=== PATIENT | female | born 1940 | race Caucasian/White ===

== ENCOUNTER 2018-07-20 13:07 | Observation (INO) | payer MEDICARE ==
[~2018-07-20] VITALS: Ht 154.9 cm; Wt 66.9 kg
--- NOTE | 2018-07-20 13:17 | NUR ---
PT TO ROOM VIA EMS
--- NOTE | 2018-07-20 13:37 | NUR ---
PT RESTING ON STRETCHER. VSS. ADVISED OF WAIT TIME FOR TEST RESULTS. SKIN WARM AND DRY.
[2018-07-20 13:51] LABS: HEMATOCRIT 39.7 % (37.0-47.0); HEMOGLOBIN 12.7 g/dl (12.0-16.0); IMMATURE GRANULOCYTES 0.5 % (0.0-5.0); MEAN CELL VOLUME 88.4 fL CALC (80.0-100.0); MEAN CORPUSCULAR HGB 28.3 pG CALC (26.0-32.0); NEUT# 4.5 thou/uL (2.00-7.15); RED BLOOD COUNT 4.49 mill/uL (4.20-5.60); RED CELL DISTRI WIDTH 13.2 % (11.5-15.5)
[2018-07-20 14:16] LABS: ALBUMIN 4.2 g/dL (3.2-5.0); ALKALINE PHOSPHATASE 124 u/l (38-126); ANION GAP 17 (6-22 (CALC)); BILIRUBIN, TOTAL 0.6 mg/dL (0.0-1.4); BUN 22 mg/dL (8-23); BUN/CREATININE RATIO 24 (12-20 (CALC)); CARBON DIOXIDE 21 mmol/l (22-30); CHLORIDE 105 mmol/l (95-108); CREATININE 0.9 mg/dL (0.5-1.0); GFR > 60 ML/MIN (>=60 (CALC)); GFR FOR AFR.AMER. > 60 ML/MIN (>=60 (CALC)); POTASSIUM 3.4 mmol/l (3.5-5.1); SGOT/AST 32 u/l (9-36); SODIUM 140 mmol/l (137-146); TOTAL PROTEIN 7.1 g/dL (6.3-8.2)
[2018-07-20 14:18] LABS: AMYLASE 111 u/l (30-110); LIPASE 144 u/l (23-300)
[2018-07-20 14:31] LABS: MYOGLOBIN 25 ng/mL (0 - 62)
--- NOTE | 2018-07-20 14:45 | NUR ---
PT RESTING ON STRETCHER. COMFORT MEASURES PROVIDED. PT IN NO APPARENT DISTRESS.
[2018-07-20] MEDS ORDERED: DILTIAZEM120 MG PO (16:50)
[2018-07-20] MEDS ORDERED: SYNTHROID125 MCG PO (16:50)
[2018-07-20] MEDS ORDERED: HYDROCHLOROT25 MG PO (16:50)
--- NOTE | 2018-07-20 16:58 | NUR ---
REPORT PROVIDED TO ELEUTERIO DUNN, ON [email or web address]. IV SITE HEALTHY. TELEMETRY IN PLACE.
--- NOTE | 2018-07-20 17:08 | NUR ---
PT TO [facility] VIA STRETCHER IN NO APPARENT DISTRESS.
[2018-07-20 17:37] VITALS: BP 169/83
--- NOTE | 2018-07-20 18:00 | NUR ---
PT HAD COME FROM ER VIA STRETCHER BY ANILA. ASSESSMENT DONE. RESPS EVEN AND UNLABORED. PT IS A&O X3. TELE IN PLACE READING SR 94 PER ED. PT DENIES ANY PAIN AT THIS TIME. SAFETY PRECAUTIONS REINFORCED AND CALL LIGHT IN REACH.
[2018-07-20 19:00] VITALS: BP 109/63
--- NOTE | 2018-07-20 19:20 | NUR ---
REPORT RECEIVED FROM ELEUTERIO PRICE. PT RESTING IN BED. RESPIRATIONS EVEN AND UNLABORED ON RA. PT DENIES ANY PAIN OR DISCOMFORT AT THIS TIME. SAFETY PRECAUTIONS IN PLACE. WILL CONTINUE TO MONITOR.
--- NOTE | 2018-07-20 20:05 | NUR ---
ASSISTED PT BACK TO BED FROM THE BATHROOM. PT GATE IS STEADY, PT DENIES ANY DIZZINESS AT THIS TIME. SAFETY PRECAUTIONS IN PLACE. WILL CONTINUE TO MONITOR.
[2018-07-21 00:04] VITALS: BP 122/73
--- NOTE | 2018-07-21 00:10 | NUR ---
PT RESTING IN BED. ALERT AND ORIENTED. PT DENIEAS HAVING ANY PAIN OR DISCOMFORT. RESPIRATIONS EVEN AND UNLABORED ON RA, LUNGS SOUND CLEAR. PT ASKING ABOUT HER DOWN THE PAEZ, LET PT KNOW HER WAS RESTING. SAFETY PRECAUTIONS IN PLACE. WILL CONTINUE TO MONITOR.
[2018-07-21 04:08] VITALS: BP 108/59
--- NOTE | 2018-07-21 05:25 | NUR ---
PT RESTING IN BED. NO SIGNS OR SYMPTOMS OF DISTRESS AT THIS TIME. WILL CONTINUE TO MONITOR.
[2018-07-21 07:42] VITALS: BP 123/76
--- NOTE | 2018-07-21 08:06 | NUR ---
ASSESSMENT DONE. PT IS A&O X3. PT DENIES PAIN OR DIZZINESS. TELE IN PLACE. RESPS EVEN AND UNLABORED. IVF INFUSING WELL. SAFETY PRECAUTIONS REINFORCED AND CALL LIGHT IN REACH.
--- NOTE | 2018-07-21 12:20 | NUR ---
PT IS SITTING IN RECLINER VISITING IN ROOM WITH FAMILY .PT DENIES ANY NEEDS AT THIS TIME.
[2018-07-21] MEDS ORDERED: SYNTHROID100 MCG PO (12:47)
[2018-07-21 12:57] VITALS: BP 121/77
--- NOTE | 2018-07-21 14:30 | NUR ---
Discharge instructions given. Patient verbalizes understanding of same. Discharged in stable condition via Wheelchair to Home with family. All belongings sent with pt.
== END 2018-07-21 14:30 | disposition home or self-care (01) ==
LOC: ED 13:07 → ED-I 15:21 → ED 15:34 → MS2 15:36
PROVIDERS: Emergency Medicine; ADMIT Internal Medicine; ATTEND Internal Medicine
DX: R55 Syncope and collapse (principal); I10 Essential (primary) hypertension; E89.0 Postprocedural hypothyroidism; R01.1 Cardiac murmur, unspecified
CPT/HCPCS: G0378; J1650